=== PATIENT | female | born 1960 | race Caucasian/White ===

== ENCOUNTER 2016-07-03 05:52 | Day surgery (SDC) | payer OTHER ==
[~2016-07-03] VITALS: Ht 149.2 cm; Wt 54.3 kg
[2016-07-03] VITALS (13 sets, daily range): BP systolic 90–122; BP diastolic 47–69; PULSE 63–74; RESP 16–20; O2SAT 95–100
[~2016-07-03 05:52] MED LIST: CHOL500011 PO; LEVO50TA6 PO; OMEG1000 PO; OMEG500C PO; VITA400C64 PO; excedrin migraine
[2016-07-03] MEDS ORDERED: EPHEDrine/NS 5 mg/mL 5 mL Syringe ONE (05:53)
[2016-07-03] MEDS ORDERED: Ondansetron 2 mg/mL 2 mL Inj ONE (05:53)
[2016-07-03] MEDS ORDERED: fentaNYL-PF 50 mCg/mL 2 mL Inj ONE (05:53)
[2016-07-03] MEDS ORDERED: Dexamethasone 4 mg/mL Inj ONE (05:53)
[2016-07-03] MEDS ORDERED: MetoCLOpramide 5 mg/mL 2 mL Inj ONE (05:53)
[2016-07-03] MEDS: Lactated Ringer's 1,000 ML IV SCH ×4 (05:59→23:12)
[2016-07-03] MEDS ORDERED: CeFAZolin Inj 3,000 MG in Dextrose 5% 100 ML IV SCH (06:00)
[2016-07-03] MEDS ORDERED: CeFAZolin Inj 2 GM in IV Premix 1 EACH IV ONE (06:00)
[2016-07-03 06:59] LABS: BASOPHILS % (AUTO) 0.9 % (0-3); EOSINOPHILS % (AUTO) 5.8 % (0-5); MONOCYTES % (AUTO) 7.4 % (4-12); Mean Corpuscular Hemoglobin 21.5 pg (27.0-35.0); Mean Corpuscular Volume 66.5 fL (81-100); NEUTROPHILS % (AUTO) 52.8 % (40-74); Platelet Count 259 bil/L (150-400)
[2016-07-03] MEDS ORDERED: Lactated Ringer's 500 ML IV PRN (07:52)
[2016-07-03] MEDS ORDERED: Lactated Ringer's 1,000 ML IV SCH (07:52)
--- NOTE | 2016-07-03 07:52 | PCM.HPANE ---
Patient Data Date of Service: July 03, 2016 (0715) Surgeon Admitting Provider: Attending Provider:Sathya Ott MD Primary Care Physician:Deana Melissa MD Other Provider:Kendra Mullen Anesthesia Reason for Visit Uterovaginal Prolapse Ht/WT & BMI Height (Feet): 4 Height (Inches): 10.75 Weight (Kilograms): 54.3 Body Mass Index 24.00 Allergies Coded Allergies: lorazepam (Verified Allergy, Unknown, disorientation, 06/28/16) sulfamethoxazole (Verified Allergy, Unknown, 12/14/08) trimethoprim (Verified Allergy, Unknown, 12/14/08) Past Anesthesia History Anesthesia History: Denies:: Abnormal Airway, Anesthesia Reactions, Difficult Intubation, Fam Anesthesia Reaction Diabetes History Hx Diabetes?: No MRSA MRSA: No Medications Hypertension Medication: No Home Meds Incl Beta William: No Reported Medications Vitamin E Mixed (Vitamin E)400 Unit [id number] Unit PO DAILY 30 Days 06/28/16 Cholecalciferol (Vitamin D3) (Vitamin D3)5,000 Unit Tablet5,000 Unit PO DAILY 06/28/16 Levothyroxine 50 Mcg [id number] Mcg PO DAILY Ref 0 06/28/16 Berne-3 Fatty Acids (Fish Oil Concentrate)1,000 Mg Capsule1,000 Mg PO 06/28/16 [excedrin migraine] No Conflict Check1 Tab PRN migraines 06/28/16 Discontinued Reported Medications Berne-3 Fatty Acids (Fish Oil)500 Mg Capsule.dr500 Mg PO DAILY 06/28/16 History History of ENT Problems?: No HEENT History: Positive for:: Hearing Problem (slight hearing loss) Denies:: Abnormal Airway Cataracts Difficult Intubation Dysphagia Glaucoma Sinus Problem TMJ Denture Type: Full- Upper Partial- Lower Teeth Condition: Within Normal Limits Hx of Heart Problems?: Yes Cardiovascular History: Positive for:: Heart Murmur Denies:: AICD Coronary Artery Disease Edema Hypertension Irregular Heartbeat Pacemaker Peripheral Vascular Rheumatic Fever Valvular Heart Disease (echo 03/06- ef 60-65%) Hx of Respiratory Problem?: Yes Respiratory History: Positive for:: Tuberculosis (prior hx of pos PPD- CXR done 01/2016 negative) Denies:: Asthma COPD Emphysema Oxygen Administration Pneumonia Use of C-PAP Machine Hx Neurologic Problems?: Yes Neurological History: Positive for:: Headaches (occasional migraines- rarely) Denies:: CVA Dementia Multiple Sclerosis Parkinson's Disease Seizures TIA Hx of GI Problems?: Yes Hx of Problems?: Yes Genitourinary History: Denies:: Kidney Stones Urinary Tract Infection Female Hx: Denies:: Currently (post menopausal) Problems with Breasts? Skin History: Denies:: History Skin Disorders? Pressure Ulcers Hx Musculoskeletal Problems?: No Musculoskeletal History: Positive for:: Osteoarthritis Denies:: Back Injury Degenerative Joint Fibromyalgia Joint Replacement Musculoskeletal Trauma Myasthenia Gravis Systemic Lupus Hx of Psycho/Social Problems?: No Psycho Social History: Denies:: Anxiety Hx Depression Hx Surgeries?: Yes (lap tom) Hx Any Other Health Problems?: Yes Other History: Positive for:: Hospitalization (thryoid tests) Thyroid Disease (hypothyroid) Denies:: Cancer Endocrine Disease History Blood Transfusions: Positive for:: Accept Blood Products? Denies:: Blood Transfusions Hx Diabetes: No Hx Alcohol Use: YesAlcoholic Drinks Per Day: not even one drink monthly- rarelyHx Substance Use: NoHave You Smoked inLast 12 mo: No Stop/Bang S-Snoring: Do You Snore Loudly: No T-Tired: feel tired, fatigued: No O-Obsered: Observed not breath: No P-Blood Pressure: treated: No B- Body Mass Index > 35 kg/m2: No A- Age over 50: Yes N- Neck Large Circumference: No G- Gender Male: No FLAKITA Total Score: 1 Risk Assessment Category Category 1A: Patient has history of documented sleep apnea, and HAS NOT received any narcotic, sedative or anesthesia administration during this stay. Category 1B: Patient has history of documented sleep apnea, and HAS received any narcotic , sedative or anesthesia administration during this stay Category 2: Patient has SUSPECTED Obstructive Sleep Apnea, and HAS received any narcotic , sedative or anesthesia administration during this stay. Category 3: Patient has SUSPECTED Obstructive Sleep Apnea and HAS NOT received narcotic, sedative or anesthesia administration during this stay. Category 4: Outpatient in Procedural Areas with known sleep apnea or who screen positive for High Risk via the STOP/BANG questionnaire. Exam Exam Vital Signs Vital Signs Date Time Temp Pulse Resp B/P Pulse Ox O2 Delivery O2 Flow Rate FiO2 07/03/16 06:46 36.3 64 18 122/69 99 Room Air General Appearance: Alert, Oriented X3, Cooperative, No Acute Distress HEENT/AIRWAY: MP 3 Lungs: Clear to Auscultation Heart: Exam Unremarkable Meds/Labs/Diagnostics Admission Meds Current Medications Lactated Ringer's (Lr) 1,000 ml @ 120 mls/hr Q8H20M IV Last administered on t 05:59; Start 07/03/16 at 05:00; Stop 07/03/16 at 13:19 Labs Test 07/03/16 06:47 White Blood Count 4.3th/mm3 (3.8-10.1) Red Blood Count 5.34mil/mm3 (3.90-5.20) Hemoglobin 11.5g/dL (12.0-15.6) Hematocrit 35.5% (35.0-46.0) Mean Corpuscular Volume 66.5fL (81-100) Mean Corpuscular Hemoglobin 21.5pg (27.0-35.0) Mean Corpuscular Hemoglobin Concent 32.4% (32.0-37.0) Red Cell Distribution Width 15.5% (12.3-15.4) Platelet Count 259bil/L (150-400) Neutrophils (%) (Auto) 52.8% (40-74) Lymphocytes (%) (Auto) 32.9% (14-46) Monocytes (%) (Auto) 7.4% (4-12) Eosinophils (%) (Auto) 5.8% (0-5) Basophils (%) (Auto) 0.9% (0-3) Plan Impression Patient chart reviewed, patient interviewed and anesthestic plan with risks, benefits, and alternatives discussed, and informed consent obtained. ASA Physical Status: ASA1 Normal Healthy Anesthetic Plan: GA Bene/Risks/Altern/Consents: Yes HP Complete Prior to Induction: Yes Wagner Pacheco MD July 03, 2016 07:52
[2016-07-03] MEDS ORDERED: fentaNYL-PF 50 mCg/mL 2 mL Inj IVPUSH PRN (07:55)
[2016-07-03] MEDS ORDERED: Ondansetron 2 mg/mL 2 mL Inj IVPUSH PRN (07:55)
[2016-07-03] MEDS ORDERED: Dexamethasone 4 mg/mL Inj IVPUSH PRN (07:55)
[2016-07-03] MEDS ORDERED: MetoCLOpramide 5 mg/mL 2 mL Inj IVPUSH PRN ×2 (07:55→12:55)
[2016-07-03] MEDS ORDERED: HYDROmorphone 1 mg/mL Inj IVPUSH PRN (07:55)
[2016-07-03] MEDS ORDERED: Phenylephrine 10,000 mCg/mL Inj IVPUSH PRN (07:55)
[2016-07-03] MEDS ORDERED: EPHEDrine Sulfate 50 mg/mL Inj IVPUSH PRN (07:55)
[2016-07-03] MEDS ORDERED: Bupivacaine 0.5%/EPI 50 mL Inj INFILTRATE ONE (08:29)
[2016-07-03] MEDS ORDERED: Estrogens Conjugated 30 Gm Vaginal Cream VAGINAL ONE (11:15)
[2016-07-03] MEDS ORDERED: Alum-Mag Hydrox-Simeth 30 mL Suspension PO PRN (12:55)
[2016-07-03] MEDS ORDERED: Acetaminophen IV 1,000 MG in IV Premix 1 EACH IV PRN (12:55)
--- NOTE | 2016-07-03 13:28 | OP ---
[address] [address] OPERATIVE REPORT PATIENT: NOEMÍ SEVILLA : 1960 MR#: [id number] ADMIT: 07/03/2016 JOB ID: [id number] DATE OF SURGERY: 07/03/2016 PREOPERATIVE DIAGNOSIS(ES): 1. Uterine prolapse. 2. Cystocele. 3. Rectocele. POSTOPERATIVE DIAGNOSIS(ES): 1. Uterine prolapse. 2. Cystocele. 3. Rectocele. PROCEDURE PERFORMED: 1. Total laparoscopic hysterectomy with bilateral uterosacral ligament suspension. 2. Anterior and posterior colporrhaphy. 3. Cystoscopy of bladder. SURGEON: Sathya Ott MD FRANCHISE MANAGER: MD Dr. Radha Fox was necessary for this procedure to help with exposure and her surgical expertise. ANESTHESIA: General. ESTIMATED BLOOD LOSS: 100 mL. COMPLICATIONS: None. PATHOLOGY SENT: Uterus with bilateral fallopian tubes. FINDINGS AT TIME OF SURGERY: Patient had complete uterine procidentia. She had normal-appearing uterus, fallopian tubes, and ovaries bilaterally. Survey of the abdomen is unremarkable. There were no intraabdominal pelvic adhesions. No evidence of any endometriosis. DESCRIPTION OF PROCEDURE: The patient was taken to the operating room where her general anesthesia was obtained without difficulty. She was placed in a lithotomy position in the [facility] and prepared and draped in the normal sterile fashion. The cervix was dilated using Hegar cervical dilators and a VCare uterine manipulator inserted without difficulty. Casas catheter was placed. A total laparoscopic hysterectomy was then performed. The umbilicus was injected with 0.5% Marcaine with epinephrine. A Veress needle was inserted at the base of patient's umbilicus into the peritoneal cavity. Needle aspirate was negative. Water drop test was confirmatory, and there were low opening pressures. A pneumoperitoneum was obtained with CO2 gas to 50 mmHg. A 5 mm skin incision was made at the base of patient's umbilicus and a 5 mm blunt trocar inserted directly into the patient's peritoneal cavity using the Visiport function of this device. Intraperitoneal placement was confirmed with the laparoscope. The above-noted findings were appreciated. Right and left lower quadrant port sites were marked off, injected with 0.5% Marcaine with epinephrine. The 5 mm skin incisions were made with a scalpel and 5 mm blunt trocars were placed in the right and left lower quadrant. The patient was placed in Trendelenburg position. The uterus was elevated. The Thunderbeat cautery device was then used to cauterize and ligate the left mesosalpinx. This tube was amputated at the cornua and taken out through the right lower quadrant port. In a similar fashion, the right fallopian tube was detached from the mesosalpinx. At this point, the round ligaments were transected bilaterally. The uterine arteries were skeletonized out bilaterally with Thunderbeat cautery device and transected. The anterior leaf of the broad ligament was carried around creating a bladder flap. The VCare cuff was then identified and entered sharply with Thunderbeat cautery device and carried around circumferentially, freeing the uterus from the vagina. The uterus was removed from patient's vagina. A surgical valve with sponge was placed in the vagina to help maintain pneumoperitoneum. A bilateral uterosacral ligament stitch was then performed. An 0 Vicryl suture was placed in the uterosacral ligament and attached to the apices of the vaginal cuff bilaterally. The VCare cuff was then reapproximated with a 2-0 V-Loc suture in a running fashion. Good hemostasis was assured. A cystoscopy of the bladder was then performed. There was bilateral spillage of urine from both ureters at end of the procedure, and the bladder was noted to be free of any suture material. The skin incision was then reapproximated with 4-0 Monocryl in subcuticular fashion and Dermabond applied. An anterior-posterior colporrhaphy were then performed. The cystocele was identified, and the vaginal epithelium injected with 0.25% Marcaine with epinephrine diluted into 40 cc of saline. The vaginal epithelium was incised with a scalpel over the bladder. The vaginal epithelium was then dissected off with blunt and sharp dissection. The cystocele was then reduced using several layers of box sutures of 2-0 Vicryl. The vaginal epithelium was then trimmed and closed in a running fashion with 0 Vicryl suture. Our attention was then turned to patient's posterior vaginal wall, and the rectocele was identified. The rectocele was injected with diluted 0.25% Marcaine. The vagina was incised with a scalpel. The underlying rectocele was dissected off with blunt and sharp dissection. The rectocele was then imbricated with several layers of 2-0 Vicryl suture in an imbricating fashion. The vaginal epithelium was then trimmed, and the vaginal epithelium was reapproximated with 0 Vicryl in a running fashion. Good hemostasis was assured. Cystoscopy was performed at the end of procedure, and again there was no suture in the bladder. The vagina was packed with 2 inch vaginal packing and Premarin cream. This concluded our procedure. The patient was taken to the recovery room awake and in good condition. All lap, instrument, and needle counts correct x2 at the end of procedure.
--- NOTE | 2016-07-03 14:10 | PCM.ANEP1 ---
Post Anesthesia Phase 1 PACU Phase 1 Assessment Date of Service: July 03, 2016 (0715) Vital Signs Vital Signs Date Time Temp Pulse Resp B/P Pulse Ox O2 Delivery O2 Flow Rate FiO2 07/03/16 13:45 63 16 95/51 97 Room Air 07/03/16 13:21 68 19 90/53 98 Room Air 07/03/16 13:15 68 19 92/51 100 Simple Mask 8 07/03/16 13:10 69 18 106/48 100 Simple Mask 8 07/03/16 13:05 36.9 73 19 101/47 100 Simple Mask 8 07/03/16 13:00 71 20 91/50 100 Simple Mask 8 07/03/16 12:55 63 17 101/50 100 Simple Mask 8 07/03/16 12:50 36.2 67 17 104/48 100 Simple Mask 8 07/03/16 06:46 36.3 64 18 122/69 99 Room Air Anesthetic Administered: GA Level of Alertness: Sleeping, hard to arouse SALES's with Equal Strength: Yes Pain: No Nausea or Vomiting: No Oxygen Delivery: Simple Mask Lungs: Clear to Auscultation Dermatome Level: Full Sensation Complications: No Wagner Pacheco MD July 03, 2016 14:10
[2016-07-03] MEDS: Ondansetron 2 mg/mL 2 mL Inj IVPUSH PRN ×2 (14:41→23:34)
--- NOTE | 2016-07-03 18:29 | NUR ---
Pain control & Nausea Peripad CDI. 3 lap. sites on abdomen CDI, well-approximated with Dermabond. Pain was controlled adequately with PRN PO Roxicodone and PRN IV Toradol. Pt. is still on clear liquid diet due to mild nausea. Pt. aware of plan for tomorrow: Discontinued Casas catheter and peripad at 0600. Educated pt. on the importance of early ambulation. Pt. verbalized understanding.
[2016-07-04 02:00] VITALS: BP 105/58; PULSE 68; RESP 16; O2SAT 96
[2016-07-04] MEDS: Ondansetron 2 mg/mL 2 mL Inj IVPUSH PRN ×2 (05:43→12:41)
[2016-07-04 06:09] VITALS: BP 92/58; PULSE 71; RESP 16; O2SAT 96
--- NOTE | 2016-07-04 06:49 | NUR ---
Shift Note Casas catheter and vaginal packing removed this AM per MD order, tolerated well, Encouraged pt. to void and ambulate as tolerated, c/o of pelvic pain and nausea, prn meds given with effective results, denies chest px and SOB, hourly checks, call light in reach and all needs attended. Addendum: 07/04/16 at 0654 by TEO GRANT RN noted of scant amount of blood in monroe pad, will continue to monitor.
[2016-07-04 08:41] LABS: BASOPHILS % (AUTO) 0.1 % (0-3); EOSINOPHILS % (AUTO) 0 % (0-5); MONOCYTES % (AUTO) 9.3 % (4-12); Mean Corpuscular Hemoglobin 21.4 pg (27.0-35.0); Mean Corpuscular Volume 66.7 fL (81-100); NEUTROPHILS % (AUTO) 74.5 % (40-74); Platelet Count 206 bil/L (150-400)
--- NOTE | 2016-07-04 09:13 | NUR ---
AMBULATION/VOID Patient up and ambulated to bathroom, voided 300mls urine. No spotting, denies pain, nausea, and shortness of breath. Back in bed and will ambulate again after breakfast. Addendum: 07/04/16 at 1430 by SERGEY GOFF RN DISCHARGE Patient discharged at 1415, left with family who will drive her home. Patient denies, pain, shortness of breath, and nausea. Patient has been up ambulated in cervantes x2 without difficulties, voiding in bathroom x2 = 600ml. IV removed intact, medications and follow up appointments reviewed and patient verbalizes understanding. Care notes and instructions of care given to patientl
[2016-07-04 12:33] VITALS: BP 103/62; RESP 16; O2SAT 100
--- NOTE | 2016-07-04 13:32 | PCM.DIGYN ---
Surgical Discharge Instruction Dates of Hospitalization Date of Hospital Admission 07/03/2016 Providers Admitting Physician: Primary Care Physician: Deana Melissa MD Attending Physician: Sathya Ott MD Diagnosis at Time of Discharge Diagnosis at time of discharge Uterine Prolapse Problems: Diet Discharge Diet: No restrictions Activity Discharge Activity-General: Try not to overdue, Be up and about, Balance rest and activity, No lifting >10 pounds for 4-6 weeks, No driving while taking narcotic, Other (nothing per vagina for 8 weeks) Dressing and Incisional Care Hygiene: May shower, Wash incision with soap & water, DO NOT soak incision under water, NO bathtub, hot tub or whirlpool (for two weeks) Follow Up Plan Follow-up appointment: Weeks (2) Call your provider for: Fever, Chills, Shortness of breath, Heavy vaginal bleeding, Increasing pain Sathya Ott MD July 04, 2016 13:32
--- NOTE | 2016-07-05 15:30 | PATH ---
SURGICAL PATHOLOGY Attending Physician:Sathya Ott, CASE STATUS: Signed Out PATIENT NAME: NOEMÍ SEVILLA PID: [id number] : 1960 DATE COLLECTED:07/03/2016 20:52 SPECIMEN: 1: Fallopian Tube, Biopsy 2: Uterus +/- tubes/ovaries, except neoplastic, prolapse CLINICAL HISTORY: UTEROVAGINAL PROLAPSE, UTERINE PROLAPSE 1). LEFT FALLOPIAN TUBE 2). UTERUS AND RIGHT FALLOPIAN TUBE FINAL DIAGNOSIS: 1.LEFT FALLOPIAN TUBE: FALLOPIAN TUBE WITH NO DIAGNOSTIC ALTERATIONS. 2.UTERUS AND RIGHT FALLOPIAN TUBE: UTERUS WITH ENDOCERVICAL POLYP AND REACTIVE CHANGES CONSISTENT WITH PROLAPSE. NEGATIVE FOR DYSPLASIA AND MALIGNANCY. FALLOPIAN TUBE WITH NO DIAGNOSTIC ALTERATIONS. [id number] N81.4 GROSS DESCRIPTION: The specimens are received in formalin, labeled with the patient's name, and sublabeled as the following: (1) left fallopian tube; (2) uterus and right fallopian tube. (1) The specimen consists of a fimbriated fallopian tube (length-5.1 cm, diameter-up to 0.6 cm). The serosa is jorgensen smooth and shiny. The lumen is badillo-white and unremarkable. Section code: (1A) fallopian tube, serially sectioned, liability claims representative; (1B) fimbria, bivalved, entirely submitted. (2) The specimen consists of the uterus (64.5 g, 3.8 cm AP, 7.3 cm SI, 5.0 cm ML) with an attached right fimbriated fallopian tube (length-6.5 cm, diameter-0.4 cm). The ovaries and left fallopian tube are absent. The cervix (2.8 cm AP, 2.3 cm ML) has a vaginal cuff (up to 0.7 cm), polyp (0.9 x 0.6 x 0.5 cm), transverse os and patent endocervical canal. The polyp is located at 6:00. The endometrium (average thickness-0.1 cm) is choi smooth and flat. The myometrium (thickness-1.7 cm) is choi and unremarkable. The fallopian tube has jorgensen smooth shiny serosa and a choi unremarkable lumen. Section code: (2A) anterior cervix; (2B) posterior cervix with polyp; (2C, 2D) anterior endomyometrium; (2E, 2F) posterior endomyometrium; (2G) fallopian tube, serially sectioned, liability claims representative; (2H) fimbria, bivalved, entirely submitted. 07/04/16 JM MICRO DESCRIPTION: See diagnosis. ICD-9 CODES: CPT CODES: 1: 64788 2: 64249 Electronically Signed Out Ryanne Song MD [facility] Pathology [facility] [address], [place] [address] Technical component performed at [facility], [address], [place], [address]
== END 2016-07-04 14:16 | disposition home or self-care (01) ==
LOC: SAS 05:52 → MOC 14:15 → SAS 07-04 14:16
PROVIDERS: ATTEND Obstetrics & Gynecology
DX: N81.4 Uterovaginal prolapse, unspecified (principal); N81.6 Rectocele; N39.46 Mixed incontinence; Z87.440 Personal history of urinary (tract) infections; E03.9 Hypothyroidism, unspecified; E78.00 Pure hypercholesterolemia, unspecified
CPT/HCPCS: 36415; 57260; 58571; 85025; 94640; J0131; J0690; J1100; J1885; J2405; J2765; J3010; J7120